=== PATIENT | male | born 1995 | race African-American/Black ===

== ENCOUNTER 2017-10-12 20:37 | Emergency (ER) | payer OTHER | END 2017-10-12 22:19 | disposition home or self-care (01) | LOC: D.ER 20:37 | DX: S70.02XA Contusion of left hip, initial encounter (principal); X58.XXXA Exposure to other specified factors, initial encounter; Y93.67 Activity, basketball; Y92.219 Unspecified school as the place of occurrence of the external cause; S70.212A Abrasion, left hip, initial encounter ==